=== PATIENT | male | born 1960 | race African-American/Black ===

== ENCOUNTER 2025-04-20 15:00 | Emergency (ER) | payer OTHER ==
[~2025-04-20] VITALS: Ht 190.5 cm; Wt 109.1 kg
[2025-04-20 15:29] VITALS: TEMP 98.5
[2025-04-20 15:52] LABS: PLATELET COUNT (AUTO) 217 K/uL (150-450); RED BLOOD CELL COUNT(AUTO) 5.35 MIL/uL (4.50-5.90); RED CELL DISTRIBUTION WIDTH 13.6 % (11.5-14.5); WHITE BLOOD COUNT (AUTO) 4.5 K/uL (4.5-11.0)
[2025-04-20 16:04] LABS: CALCIUM, TOTAL 9.1 mg/dL (8.8-10.5); CREATININE 0.96 mg/dL (0.60-1.30); GLOMERULAR FILTR. RATE CALC > 60 mL/min (>60); GLUCOSE,RANDOM 100 mg/dL (70-110); SODIUM SERUM 138 mmol/L (136-145); UREA NITROGEN, BLOOD 10 mg/dL (7-18)
[2025-04-20 17:30] VITALS: BP 124/72; PULSE 93; RESP 19; O2SAT 96
== END 2025-04-20 19:39 ==
LOC: EDBD 15:25 → EMS 15:25
DX: M25.472 Effusion, left ankle (principal); E78.00 Pure hypercholesterolemia, unspecified; G89.29 Other chronic pain; N18.9 Chronic kidney disease, unspecified; Z88.5 Allergy status to narcotic agent
CPT/HCPCS: 80048; 84550; 85025; 93971; 99284